=== PATIENT | male | born 1980 | race African-American/Black ===

== ENCOUNTER 2016-09-11 17:48 | Inpatient (IN) | payer BC ==
--- NOTE | ~2016-09-11 | CN ---
Consultation Report [facility] [address] [place]. [address] NAME: MIKE FRANZ : 82 STATUS : ADM Yessenia PAT#: [id number] AGE: 36 ADM/REG DATE : 09/11/16 MR#: [id number] REPORT SERV DATE: 09/13/16 DICTATED BY: HAMIDA MI DATE: 09/12/16 REPORT STATUS : Draft TRANSCRIBED BY: OLIVIA DATE: 09/12/16 NEUROLOGICAL CONSULTATION. DATE OF CONSULTATION: 09/12/2016 HISTORY OF PRESENT ILLNESS: This is a 36-year-old, male, who was admitted through the emergency room with right-sided weakness and numbness. The patient had a fluctuating course with numbness involving his leg and arm that recurred in the last two days prior to admission. The patient apparently woke up with symptoms of weakness on the day of admission. I was called in late afternoon to discuss the possible recommendations for this 36-year old, who presented with right-sided weakness and numbness. The patient was outside of the window for tPA and outside of the window for intervention. The history was obtained from the patient and his mother who is present at the bedside. It appears that the patient's symptom fluctuated, and the patient apparently woke up in the morning okay, however, noticed to have right leg weakness when he went to use the restroom which was shortly after awakening. The patient does not have any prior history of strokes. The CT scan of the head on admission to the emergency room showed no acute intracranial pathology. A small 4 mm old lacunar infarct was seen in the right basal ganglia and caudate nucleus. The MRI of the brain was recommended. The patient's MRI of the brain showed an acute stroke in the left periventricular region extending from basal ganglia. In addition, areas of ischemic infarcts were seen in both hemispheres suggestive of previous microvascular events. PAST MEDICAL HISTORY: Significant history of malignant hypertension. The patient has been on multiple anti-hypertensive medications prior to admission. The patient was evaluated, referred to Dr. Evans in [facility] who was apparently going to perform adrenalectomy for removal of "tumor" which appears to be possibly a pheochromocytoma. The patient's family was not aware of the details. SOCIAL HISTORY: The patient works in [employer]. There is no history of smoking or alcohol use. He lives with his parents. FAMILY HISTORY: Both parents have history of hypertension and obstructive sleep apnea. The patient's cousin on father's side at age 48 had an acute stroke. The patient's grandmother on maternal side had a stroke and renal disease prior to her . No history of renal disease present in the family. ALLERGIES: NO KNOWN ALLERGIES. SOCIAL HISTORY: As mentioned above. REVIEW OF SYSTEMS: The patient denied having knowledge of previous strokes in the past. The patient's blood pressure has been difficult to control. The patient's primary physician referred the patient to Dr. Evans for ? removal of adrenal gland with a " tumor." Consultation Report [place] [id number] [facility] [place]. [address] NAME: MIKE FRANZ : 82 STATUS : ADM Yessenia PAT#: [id number] AGE: 36 ADM/REG DATE : 09/11/16 MR#: [id number] REPORT SERV DATE: 09/13/16 DICTATED BY: HAMIDA MI DATE: 09/12/16 REPORT STATUS : Draft TRANSCRIBED BY: OLIVIA DATE: 09/12/16 There is no history of headaches or migraine headaches in the patient or his family. No history of cerebral hemorrhage was present in the patient's family. The rest of review of systems was negative except for history of hypertension poorly controlled. There is no history of chest pain, shortness of breath, irregular heart beat. The patient, however, stated that he finds himself snoring at night and waking up having difficulty falling back to sleep. The patient denied any recent changes of weight. Denied weakness or numbness of his face or extremities prior to his stroke. Denied difficulty with his speech or coordination. Denied loss of consciousness. No history of history of seizures. PHYSICAL EXAMINATION: VITAL SIGNS: Blood pressure oscillating between 146 and 185 systolic, 82 and 100 diastolic. Pulse ranges between 72 and 64. Respirations 16. Temperature 98.6. Height 6 feet and 2 inches. Weight 211 pounds/ 95.87 kilos, and BMI 27.1. HEAD AND NECK: Examination showed head to be normocephalic. There was no evidence of trauma. Auscultation of the neck showed no evidence of bruits. EYE EXAM: Sclerae were not icteric. Conjunctivae were pink. ENT EXAM: Showed small airway Mallampati class 3. Tongue was midline. No enlargement of the tongue noted. No fibrillations were observed. NECK: Neck was supple. There is no Kernig or Brudzinski. Cervical range of motion was not impaired. CHEST: Symmetrical. LUNGS: Clear. HEART: Auscultation of heart regular S1, S2. No S3, S4, gallops were noted. ABDOMEN: Abdomen was soft, nontender. No organomegaly. EXTREMITIES: Show no clubbing or cyanosis. There was no peripheral edema. Peripheral pulses were intact distally in both arms. SKIN: Clear. NEUROLOGICAL EXAMINATION: MENTAL STATUS EXAM: The patient is alert, oriented to self, time, and place. His speech was fluent. There was no evidence of aphasia although patient as per his mother was speaking slower than usual. The patient did not have any signs of true aphasia. No neologisms, difficulty finding words, difficulty with fluency was detected. Distant and recent memory appeared intact. Cranial nerve examination 2 through 12: Visual malhotra on confrontation were intact except for questionable left upper quadrant deficit which is probably secondary to difficulty in testing of this patient. The rest of cranial nerve examination showed very mild right facial weakness. No sensory deficits were noted. Examination of face; lower cranial nerves were intact. Tongue was midline. No atrophy or fibrillation noted. Palate elevated symmetrically. Sternocleidomastoid and trapezius muscles showed asymmetry of strength in shoulder shrug which was decreased on the right. Motor Exam: Muscle bulk and tone were normal on the left. Bulk was normal on the right. Tone was decreased on the right. Strength testing showed a strength of 5/5 on the left and Consultation Report [address] [place]. [address] NAME: MIKE FRANZ : 82 STATUS : ADM Yessenia PAT#: [id number] AGE: 36 ADM/REG DATE : 09/11/16 MR#: [id number] REPORT SERV DATE: 09/13/16 DICTATED BY: HAMIDA MI DATE: 09/12/16 REPORT STATUS : Draft TRANSCRIBED BY: MODTamir DATE: 09/12/16 3+/5 on the right upper extremity and 3/5 in right lower extremity. Sensory Exam: Showed decreased sensation to temperature on the right. However, vibration appeared to be symmetrical. Cerebellar exam on uisefy-kb-mvwt and fdny-ws-lhgk was intact on the left and difficult to test secondary to weakness. Gait could not be tested. The patient was not able to support his weight on the right. LABORATORY STUDIES: Sedimentation rate 11, glycosylated hemoglobin 5.6, urine drug screen negative. Comprehensive metabolic; sodium 141, potassium 4.3, chloride 105, carbon dioxide 29, BUN 25, creatinine 2.38. Glomerular filtration rate 39, glucose 102, calcium 9.6, total protein 8.6, albumin 4.1, globulin 4.6, troponins 0.03. AST 19, ALT 20. Lipid panel; cholesterol 125, HDL cholesterol 48, LDL cholesterol 65, triglyceride 64, CPK 471, CPK-MB fraction 1.7, TSH 0.958, free T4 1.16. MRI of the brain as mentioned above showed area of acute infarction in the left periventricular region extending to the basal ganglia. Ischemic changes were seen in both hemispheres as mentioned by the radiologist, would also include concern for underlying vasculitis or CADASIL. This was interpreted by Dr. Ben Leslie, Radiology. The patient's MRA of the neck showed early atherosclerotic changes in the posterior wall of the internal carotid bilaterally, however, no significant stenosis. An MRA of the head was normal. IMPRESSION: A stuttering course with recurrent transient ischemic attack, prior to an acute stroke which apparently was a combination of the process that continued for two days. The patient was apparently outside of the window for tPA or interventional evaluation. MRI did not show any lesions amenable to interventional treatment. History of malignant hypertension, possible history of pheochromocytoma. The patient was apparently scheduled for surgery to remove one of his adrenal glands as per patient's mother. Medications the patient has been on; Catapres, Procardia, Cardura, Lopressor and Lasix prior to admission and Catapres 0.1 mg suggest presence of severe hypertension poorly controlled. Recommend for the patient blood pressure to be contained within 150 and 185 systolic range to follow with rule of permissive hypertension during an acute stroke. This should extend for 72 hours after the apparent stroke. Avoid using IV hydralazine to cause precipitous drops of blood pressure. Cardene drip would be recommended if the patient's blood pressure exceeds the given parameters, and the patient should be transferred to the ICU for close monitoring. The patient's laboratory studies suggest presence of renal insufficiency, most likely secondary to hypertension. Recommend to follow guidelines for workup in a young patient that should include hypercoagulable state. Protein C, protein S, antithrombin III, Leiden factor 5, anticardiolipin antibodies titers, homocystine, vitamin B12, and folate levels should be obtained. Cardiac consultation for cardiac workup is highly recommended. The patient should have echocardiogram with a bubble study and a transesophageal echo (NAVA). A genetic testing should be considered if the diagnosis of CADASIL is entertained. This disorder is described more frequently in the young patients Consultation Report [facility] [address] [place]. [address] NAME: MIKE FRANZ : 82 STATUS : ADM Yessenia PAT#: [id number] AGE: 36 ADM/REG DATE : 09/11/16 MR#: [id number] REPORT SERV DATE: 09/13/16 DICTATED BY: HAMIDA MI DATE: 09/12/16 REPORT STATUS : Draft TRANSCRIBED BY: OLIVIA DATE: 09/12/16 with subcortical infarcts causing leukoencephalopathy, was most commonly associated with migraine headaches and follows the autosomal dominant pattern of inheritance. 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 Obtain records from the patient's primary physician and from Dr. Evans. The telephone number is included in the patient's chart. Follow stroke orders, PT, OT speech therapy, rehab transfer for aggressive continued inpatient rehabilitation. DVT prophylaxis, however, avoid anticoagulation. If the patient truly has CADASIL, these patients may be prone to micro-hemorrhages. The cerebral vasculitis should also be considered although no evidence of Moyamoya disease is present. The vasculitis changes can be missed on the MRA. I would recommend a followup with stroke neurologist on an outpatient basis once the patient is released from rehabilitation. The patient should also be referred for an outpatient polysomnography study to rule out obstructive sleep apnea and if present to receive treatment for it. Thank you for allowing me to participate in this patient's care. FLORIAN/OLIVIA Hamida Mi MD / [id number] CC: Armando Shahid M.D. [facility]
--- NOTE | ~2016-09-11 | DS ---
Discharge Summary [facility] [address] [place]. [address] NAME: MIKE FRANZ : 82 STATUS : DIS IN PAT#: [id number] AGE: 36 ADM/REG DATE : 09/11/16 MR#: [id number] REPORT SERV DATE: 09/16/16 DICTATED BY: NATALIE LOPEZ DATE: 09/15/16 REPORT STATUS : Draft TRANSCRIBED BY: OLIVIA DATE: 09/15/16 ADMISSION DATE: 09/11/2016 DISCHARGE DATE: 09/15/2016 CONSULTATIONS: 1. Neurology, Dr. Hamida Mi. 2. General Surgery, Dr. Evans. DISCHARGE DIAGNOSES: 1. Acute left paraventricular infarction extending into the basal ganglia region. 2. Malignant hypertension. 3. Pheochromocytoma. 4. Chronic kidney disease stage 3 to 4. 5. Hypertensive heart disease. 6. Hyperlipidemia. DISCHARGE CONDITION: Stable. HISTORY OF PRESENT ILLNESS: For detailed HPI, make reference to Dr. Art Davalos's dictation on 09/11/2016. In brief, this is a 36-year-old gentleman with medical history of malignant hypertension, chronic kidney disease stage 3 to stage 4, left ventricular hypertrophy, who presented to the emergency department with complaints of stuttering, right- sided numbness, tingling, and weakness of two days duration. On arrival to the ER, blood pressure was 145/67, pulse was 76, respiratory rate was 20, saturating 95% on room air. Physical exam was noted for right upper extremity and right lower extremity strength of 3/5. Left upper extremity and left lower extremity 5/5. A CT of the brain was done in the emergency room that was negative for an acute stroke, but noted was a small old right basal ganglia lacunar infarct. Neurology was consulted stat. An MRI/MRA of the brain was done that confirmed the presence of acute prior ventricular infection extending into the basal ganglia. The patient was outside the tPA window. The patient was admitted to the Hospitalist Service. HOSPITAL COURSE: 1. Acute left paraventricular infection extending into the basal ganglia, confirmed on MRI. The patient had further workup for possible definitive etiology of acute CVA. He underwent an echocardiogram that showed a normal left ventricular systolic function with estimated ejection fraction of 55%. No significant valvular regurgitation or stenosis was noted. The patient was placed on cardiac tele. No evidence of significant arrhythmias noted. The patient also underwent a transesophageal echo that showed no evidence of left atrial appendage thrombus. No evidence of atrial septal defect or patent foraminal ovale noted. It was noted on the patient's MRI that the patient's MRI imaging was also concerning for possible CADASIL. 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 The patient was advised to continue to have this further testing done as an outpatient with primary care physician. Per Physical Therapy evaluation, the patient was recommended to have acute rehabilitation at [facility]. The patient was accepted at Discharge Summary [address] [address] NAME: MIKE FRANZ : 82 STATUS : DIS IN PAT#: [id number] AGE: 36 ADM/REG DATE : 09/11/16 MR#: [id number] REPORT SERV DATE: 09/16/16 DICTATED BY: NATALIE LOPEZ DATE: 09/15/16 REPORT STATUS : Draft TRANSCRIBED BY: OLIVIA DATE: 09/15/16 [facility] and was subsequently discharged for acute rehabilitation. 2. Pheochromocytoma. The patient continued to have persistently elevated pheochromocytoma. The patient was well known to Dr. Evans, where he was having a pre workup for possible adrenalectomy. Prior to presentation to the hospital, the patient was started on Cardura, which was titrated from 4 mg to 8 mg during the course of this admission for blood pressure control. The patient was unable to have an adrenalectomy during this admission due to concern for an acute CVA. There is also a concern that the patient's blood pressure might suddenly drop post adrenalectomy, which may worsen the patient's neurological function from the acute cerebrovascular accident standpoint. Hence, it was concluded that the patient should continue tight blood pressure control, undergo rehab, and follow up as an outpatient for possible adrenalectomy. 3. Chronic kidney disease stage 3 to 4. The patient's creatinine on presentation was 2.38. The patient's last known baseline ranges between 2 and 3. The patient's primary Nephrology was consulted during this admission. The patient did not undergo any hemodialysis during this admission. The patient's creatinine continued to improve. The patient's creatinine was 2.14 prior to discharge. The patient was advised to continue to follow up with primary Nephrology as an outpatient. DISCHARGE MEDICATIONS: 1. Cardura 80 mg p.o. daily. 2. Clonidine 0.2 mg one p.o. b.i.d. 3. Spironolactone 50 mg p.o. daily. 4. Nifedipine XL 90 mg p.o. daily. 5. Aspirin 81 mg p.o. daily. 6. Lipitor 80 mg p.o. daily. 7. Lasix 40 mg p.o. daily. 8. Hydralazine 100 mg p.o. q.8 hours. DISCHARGE DISPOSITION: [facility] for rehab. Greater than 35 minutes was used to prepare this patient's discharge, reconcile medication, and advise the patient on discharge plans and followup. DICTATED BY: MD PHILIPP Joseph/OLIVIA Natalie Lopez MD / [id number] CC: Natalie Lopez MD Discharge Summary [address] [address] NAME: MIKE FRANZ : 82 STATUS : DIS IN PAT#: [id number] AGE: 36 ADM/REG DATE : 09/11/16 MR#: [id number] REPORT SERV DATE: 09/16/16 DICTATED BY: NATALIE LOPEZ DATE: 09/15/16 REPORT STATUS : Draft TRANSCRIBED BY: MODL DATE: 09/15/16 GURU Saad TAVAREZ
--- NOTE | ~2016-09-11 | OP ---
Record Of Operation [facility] [address] [place]. [address] NAME: MIKE NAVARRO : 82 STATUS : ADM Yessenia PAT#: [id number] AGE: 36 ADM/REG DATE : 09/11/16 MR#: [id number] REPORT SERV DATE: 09/14/16 DICTATED BY: DATE: REPORT STATUS : Draft TRANSCRIBED BY: MODL DATE: 09/14/16 DATE OF PROCEDURE: 09/14/2016 CHIEF COMPLAINT/REASON FOR STUDY: Cerebrovascular accident. DESCRIPTION OF PROCEDURE: Written informed consent was obtained. Please see chart for documentation. With the assistance of my Anesthesia colleagues, Mr. Navarro was sedated for the procedure. The transesophageal probe was placed with one attempt without complications. FINDINGS: 1. The left ventricular systolic function is normal with a visually estimated ejection fraction greater than 55%. The left ventricle is moderately hypertrophied. There was no evidence of left ventricular thrombus present. 2. The right ventricle is normal in size and systolic function. 3. The left atrium was mildly dilated. There was no evidence of left atrial thrombus. 4. The right atrium was normal in size. The agitated saline contrast study was performed. With complete opacification of the right atrium, there was no extravasation of agitated saline into the left atrium, there was no evidence of left atrial septal defect or patent foramen ovale. 5. The left atrial appendage was interrogated at multiple levels and depths. There was no evidence of left atrial appendage thrombus. VALVES: 1. The mitral valve was structurally normal. There was no significant mitral valvular regurgitation or stenosis. 2. The aortic valve was trileaflet. There was mild aortic valvular regurgitation. There was no evidence of aortic valvular stenosis. 3. The pulmonary valve was well visualized. There was no evidence of pulmonary valve stenosis or regurgitation. 4. The tricuspid valve was normal. There was no evidence of tricuspid valve regurgitation or stenosis. 5. There was no evidence of pericardial effusion. 6. The thoracic aorta was interrogated, there was mild intimal thickening present. IMPRESSION: 1. Normal left ventricular systolic function with a visually estimated ejection fraction greater than 55%. 2. Moderate left ventricular hypertrophy. 3. Mild aortic insufficiency. 4. No evidence of left atrial or left atrial appendage thrombus. 5. No evidence of atrial septal defect or patent foramen ovale. [facility]/MODL Sharona Mckeon Record Of Operation [facility] [address] [place]. [address] NAME: MIKE NAVARRO : 82 STATUS : ADM Yessenia PAT#: [id number] AGE: 36 ADM/REG DATE : 09/11/16 MR#: [id number] REPORT SERV DATE: 09/14/16 DICTATED BY: DATE: REPORT STATUS : Draft TRANSCRIBED BY: MODL DATE: 09/14/16 Jose Kumar / [id number] CC: MD MURPHY JosephGURU Nash
--- NOTE | ~2016-09-11 | HP ---
History And Physical [facility] [address] [place]. [address] NAME: MIKE NAVARRO : [birth year] STATUS : ADM Yessenia PAT#: [id number] AGE: 36 ADM/REG DATE : 09/11/16 MR#: [id number] REPORT SERV DATE: 09/12/16 DICTATED BY: TAMI LUTZ DATE: 09/11/16 REPORT STATUS : Draft TRANSCRIBED BY: MODTamir DATE: 09/11/16 DATE OF ADMISSION: 09/11/2016 POINT OF ENTRY: [facility] Emergency Department. PRIMARY POURER OFF: Dr. Wilde. CHIEF COMPLAINT: Right-sided weakness and numbness and tingling. HISTORY OF PRESENT ILLNESS: Mr. Navarro is a 36-year-old gentleman with a history of malignant hypertension as well as chronic kidney stage 3 to stage 4 and left ventricular hypertrophy who presents to the emergency department today with a two-day history of stuttering symptoms of right-sided numbness, tingling, and weakness. The patient states that his symptoms first began about two days ago when he noticed right lower extremity numbness and tingling but denies any pradip weakness. Those symptoms resolved on their own after a few hours. Yesterday, while at work, he again noticed some right lower extremity numbness and tingling, continued his shift at [employer] and then went home. Upon today, he noted that his right lower extremity numbness and tingling also returned. However, at this time, he stated he was unable to move his right lower extremity secondarty to weakness and also started to notice some numbness and tingling of the right upper extremity and numbness and tingling of the right side of the face. His mother who is at bedside noted some "twisted face" concerning for possible stroke as well as that he was having difficulties ambulating to the dinner table for dinner tonight. He then required assistance to get into the car to present to the emergency department. The patient was recently started on Cardura by Dr. Evans as he was referred to Dr. Evans for possible adrenalectomy. This medication was recently dose increased by Dr. Evans' office a few days ago for continued titration of the patient's blood pressures. Initial evaluation in the emergency department notable for CT scan of the brain that was negative for any acute stroke but did show a small old right basal ganglia lacunar infarction. Neurology was consulted and recommended stat MRI, MRA to be performed in the ER which reportedly came back as acute cerebrovascular accident involving the left posterior caudate as well as external capsule. Labs otherwise unremarkable. Blood pressures have been fairly well controlled with systolic between 130s to 160s. The patient was subsequently admitted to the Hospitalist Service for further evaluation and management. Comprehensive review of systems otherwise negative unless listed in history of present illness. The patient states that blood pressures at home have been ranging between 130s to 170s systolic as well as 80s to 90s diastolic. PREVIOUS MEDICAL HISTORY: 1. Hypertension. 2. Hyperlipidemia. 3. Chronic kidney disase, stage 3 to stage 4. Unknown recent baseline creatinine. History And Physical [address] [address] NAME: MIKE NAVARRO : [birth year] STATUS : ADM Yessenia PAT#: [id number] AGE: 36 ADM/REG DATE : 09/11/16 MR#: [id number] REPORT SERV DATE: 09/12/16 DICTATED BY: TAMI LUTZ DATE: 09/11/16 REPORT STATUS : Draft TRANSCRIBED BY: OLIVIA DATE: 09/11/16 4. LVH. SURGICAL HISTORY: 1. Umbilical hernia repair. 2. Left shoulder cyst surgery as a child. ALLERGIES: NO KNOWN DRUG ALLERGIES. HOME MEDICATIONS: 1. Vitamin D of 2000 units daily. 2. Clonidine 0.1 mg b.i.d. 3. Cardura 4 mg daily. 4. Lasix 40 mg daily. 5. Hydralazine 100 mg q.6 hours. 6. Lopressor 100 mg b.i.d. 7. Multivitamin one tablet daily. 8. Nifedipine 90 mg daily. 9. Simvastatin 20 mg at bedtime. 10.Aldactone 25 mg daily. SOCIAL HISTORY: Denies any tobacco, alcohol, or illicits. FAMILY MEDICAL HISTORY: Mother and father both with hypertension. Diabetes also runs in the family. LABS AND IMAGING: White count is 7.2, hemoglobin is 14.7, hematocrit 42.6, and platelet count is 220. INR 1.0. Sodium is 141, potassium 4.3, chloride 105, carbon dioxide 29, BUN 25, creatinine 2.3, glucose is 102, calcium 9.6, protein 8.6, albumin 4.1, bilirubin 0.7, ALT is 20, AST 19, and alkaline phosphatase is 177. Troponin 0.03. EKG per my review shows normal sinus rhythm with evidence of LVH as well as some lateral T- wave inversions which are unchanged compared to prior. Chest x-ray per my review shows no acute cardiopulmonary abnormality. CT scan of the brain shows no acute intracranial pathology, does show a small 4 mm old right basal ganglia lacunar infarction. MRI per overnight virtual radiology review shows no acute cerebrovascular accident involving the posterior left caudate and external capsule area. MRA of the neck is negative. MRI of the brain is pending. PHYSICAL EXAMINATION: History And Physical [address] [address] NAME: MIKE NAVARRO : [birth year] STATUS : ADM Yessenia PAT#: [id number] AGE: 36 ADM/REG DATE : 09/11/16 MR#: [id number] REPORT SERV DATE: 09/12/16 DICTATED BY: TAMI LUTZ DATE: 09/11/16 REPORT STATUS : Draft TRANSCRIBED BY: OLIVIA DATE: 09/11/16 VITAL SIGNS: Temperature is 98.2 degrees Fahrenheit, pulse is 76, respirations 20, saturating 98% on room air. Blood pressure 145/67. On recheck, blood pressure is now 152/94, pulse in the 70s. GENERAL: The patient is awake, alert, in no acute distress. Resting comfortably in bed. He is a well-developed, well-nourished, male. Mother is at bedside. HEENT: Atraumatic and normocephalic. Moist mucous membranes. Pupils are equal, round, reactive to light and accommodation. Extraocular eye movements intact. No scleral icterus. NECK: No jugular venous distention or carotid bruits. No carotid bruits. CARDIAC: Regular rate and rhythm. No murmurs, rubs, or gallops. Normal S1, S2. LUNGS: Clear to auscultation bilaterally. No wheezes, rhonchi, or crackles. ABDOMEN: Soft, nontender, nondistended with good bowel sounds. No rebound, guarding, or rigidity. EXTREMITIES: Warm and well perfused. No cyanosis, clubbing, or edema. SKIN: Warm and dry. PSYCH: Affect appropriate. NEURO: Alert and oriented x3. Cranial nerves 2 through 12 grossly intact. Speech is normal. Gait is not assessed. The patient does have 3+ strength in the right upper extremity as well as a 3/5 strength in the right lower extremity. There was some impaired proprioception of the right upper extremity as well as some dysmetria question whether that is secondary to cerebellar issues versus weakness. I do not appreciate any facial droop at this time and mother corrobrates that. ASSESSMENT AND PLAN: Mr. Navarro is a 36-year-old gentleman who presents with a two-day history of intermittent episodes of right lower extremity numbness, tingling, then progressing to weakness as well as involving the right upper extremity in the right side of his face and found to have evidence of an acute left-sided cerebrovascular accident. PROBLEM LIST: 1. Acute to subacute left-sided cerebrovascular accident. 2. Hypertension. 3. Hyperlipidemia. 4. Chronic kidney stage 3 to stage IV. PLAN: 1. Acute cerebrovascular accident. We will admit the patient to the Hospitalist Service under the stroke pathway. Neurology has been contacted in the emergency department. We will place a formal consultation to see in the morning. We will continue patient's high-dose aspirin and place the patient on high-dose atorvastatin. We will check an echocardiogram in the morning. We will also allow for some permissive hypertension with goal systolics of 140s to 170s overnight. We will defer further blood pressure goals to Neurology in the morning. 2. Hypertension. Continue the patient's home medications with holding parameters. Again, defer to Neurology in the morning regarding specific blood pressure goals in the short term. 3. Hyperlipidemia. Holding the patient's simvastatin. Place him on high-dose atorvastatin. 4. Chronic kidney stage 3 to stage 4. The patient appears to have a creatinine better History And Physical [address] [address] NAME: MIKE NAVARRO : 82 STATUS : ADM Yessenia PAT#: [id number] AGE: 36 ADM/REG DATE : 09/11/16 MR#: [id number] REPORT SERV DATE: 09/12/16 DICTATED BY: TAMI LUTZ DATE: 09/11/16 REPORT STATUS : Draft TRANSCRIBED BY: OLIVIA DATE: 09/11/16 than last known values in [employer], although I am not sure what his recent baseline creatinine values are at this time. 5. DVT prophylaxis. Lovenox subcu. CODE STATUS: The patient wished to be full code. SULEMAN/OLIVIA Tami Lutz MD / [id number] CC: Jose Taylor M.D.
[2016-09-11 15:45] LABS: BASOPHILS 0.1 %; BASOPHILS ABSOLUTE 0.01 10/3/uL (0.0-0.16); EOSINOPHILS 2.5 %; EOSINOPHILS ABSOLUTE 0.18 10/3/uL (0.0-0.53); IMMATURE GRANULOCYTES 0.1 %; IMMATURE GRANULOCYTES ABSOLUTE 0.01 10/3/uL (0.0-0.11); LYMPHOCYTES 23.6 %; MEAN CORPUS HGB CONC 34.5 g/dL (32.0-36.0); MEAN PLATELET VOLUME 11.2 fL (9.2-13.0); MONOCYTES 8.6 %; MONOCYTES ABSOLUTE 0.62 10/3/uL (0.21-1.20); NEUTROPHILS 65.1 %; NEUTROPHILS ABSOLUTE 4.69 10/3/uL (2.02-8.40); PLATELET COUNT 222 10/3/uL (150-400); RED CELL COUNT 5.03 10/6/uL (4.7-6.1)
[2016-09-11 15:51] LABS: HEMATOCRIT 42.6 % (40.0-51.0); HEMOGLOBIN 14.7 g/dL (13.6-17.8); MEAN CORPUSCULAR HEMOGLOB 29.2 pg (26.0-34.0); MEAN CORPUSCULAR VOLUME 84.7 fL (80-100); WHITE BLOOD CELLS 7.2 10/3/uL (4.5-10.5)
[2016-09-11 16:00] LABS: MANUAL DIFF NO %
[2016-09-11 16:05] LABS: A/G RATIO 0.9 (0.7-1.9); ALBUMIN 4.1 G/DL (3.5-5.0); ALKALINE PHOSPHATASE 111 U/L (45-117); BUN (BLOOD UREA NITROGEN) 25 MG/DL (6-23); CALCIUM, SERUM 9.6 MG/DL (8.5-10.4); CHLORIDE, SERUM 105 MMOL/L (96-112); CO2 (CARBON DIOXIDE) 29 MMOL/L (24-34); CREATININE 2.38 MG/DL (0.70-1.30); GFR AFRICAN AMERICAN 39 ML/MIN (>=60); GFR NON AFRICAN AMERICAN 34 ML/MIN (>=60); GLOBULIN 4.5 G/DL (2.5-4.1); GLUCOSE, SERUM 102 MG/DL (60-99); POTASSIUM, SERUM 4.3 MMOL/L (3.5-5.3); SGOT(AST) 19 U/L (5-40); SGPT(ALT) 20 U/L (5-65); SODIUM, SERUM 141 MMOL/L (135-148); TOTAL BILIRUBIN 0.7 MG/DL (0-1.2); TOTAL PROTEIN 8.6 G/DL (6.0-8.5); TROPONIN I 0.03 NG/ML (<0.05)
[2016-09-11 16:09] LABS: PROTIME (NOT ORD) 13.5 SEC (12.0-14.5)
[~2016-09-11 17:48] MED LIST: ADALAT CC90 MG PO; AMLODIPINE BESYLATE PO; APRES25 PO; CARDU4 PO; CAT1 PO; HYDRALAZINE100 MG PO; L40 PO; LONITEN10 PO; LOP100 PO; MULTIVITAMI1 PO; NICODERM C21 MG/241 TOP; NORV10 PO; NORV5 PO; NXL9 PO; SPIRO25 PO; TRANDAT100 PO; VITAMIN D2000 UNIT PO; ZOCOR20 PO
[2016-09-12 08:29] LABS: CHOL/HDL RATIO(NOT ORDER) 2.6 (0-5); CHOLESTEROL 125 MG/DL (< 200); CPK 471 U/L (0-200); FREE T4 1.16 NG/DL (0.76-1.46); HDL CHOLESTEROL 48 MG/DL (> 39); LDL CHOLESTEROL 65 MG/DL (< 130); NON-HDL CHOLESTEROL 77 MG/DL (< 160); TRIGLYCERIDE 64 MG/DL (< 150); TROPONIN I <0.02 NG/ML (<0.05)
[2016-09-12 08:30] LABS: CK-MB 1.7 NG/ML; ULTRASENSITIVE TSH 0.958 MCIU/ML (0.358-3.740)
[2016-09-12 13:17] LABS: CPK 483 U/L (0-200); TROPONIN I <0.02 NG/ML (<0.05)
[2016-09-12 13:20] LABS: CK-MB 1.8 NG/ML
[2016-09-12 14:44] LABS: AMPHETAMINES (NOT ORD) NEG (NEG); BARBITURATES (NOT ORDERED NEG (NEG); BENZODIAZEPINES (NOT ORD) NEG (NEG); CANNABINOIDS (THC) NEG (NEG); COCAINE (NOT ORDERED) NEG (NEG); OPIATES NEG (NEG); PHENCYCLIDINE(PCP) NEG (NEG); TRICYCLICS NEG (NEG)
[2016-09-13 07:27] LABS: SED RATE 13 MM/HR (0-15)
[2016-09-13 07:48] LABS: ANTITHROMBIN 3 ACTIVITY 103 % (80-121); CHOL/HDL RATIO(NOT ORDER) 3.1 (0-5); FOLATE 34.5 NG/ML (>5.2); HOMOCYSTEINE 11.9 UMOL/L (4.3-11.4)
[2016-09-14 05:51] LABS: BASOPHILS 0.2 %; BASOPHILS ABSOLUTE 0.01 10/3/uL (0.0-0.16); EOSINOPHILS 6.6 %; EOSINOPHILS ABSOLUTE 0.32 10/3/uL (0.0-0.53); HEMATOCRIT 39.8 % (40.0-51.0); HEMOGLOBIN 13.7 g/dL (13.6-17.8); IMMATURE GRANULOCYTES 0.2 %; IMMATURE GRANULOCYTES ABSOLUTE 0.01 10/3/uL (0.0-0.11); LYMPHOCYTES 29.5 %; LYMPHOCYTES ABSOLUTE 1.43 10/3/uL (0.67-4.30); MEAN CORPUS HGB CONC 34.4 g/dL (32.0-36.0); MEAN CORPUSCULAR HEMOGLOB 28.8 pg (26.0-34.0); MEAN CORPUSCULAR VOLUME 83.6 fL (80-100); MEAN PLATELET VOLUME 11.1 fL (9.2-13.0); MONOCYTES 6.6 %; MONOCYTES ABSOLUTE 0.32 10/3/uL (0.21-1.20); NEUTROPHILS 56.9 %; NEUTROPHILS ABSOLUTE 2.75 10/3/uL (2.02-8.40); PLATELET COUNT 228 10/3/uL (150-400); RBC DISTRIBUTION WIDTH 13.5 % (12.0-16.0); RED CELL COUNT 4.76 10/6/uL (4.7-6.1); WHITE BLOOD CELLS 4.8 10/3/uL (4.5-10.5)
[2016-09-14 05:52] LABS: MANUAL DIFF NO %
[2016-09-14 06:05] LABS: ALBUMIN 3.6 G/DL (3.5-5.0); BUN (BLOOD UREA NITROGEN) 24 MG/DL (6-23); CALCIUM, SERUM 9.7 MG/DL (8.5-10.4); CHLORIDE, SERUM 106 MMOL/L (96-112); CO2 (CARBON DIOXIDE) 25 MMOL/L (24-34); CREATININE 2.08 MG/DL (0.70-1.30); GFR AFRICAN AMERICAN 46 ML/MIN (>=60); GFR NON AFRICAN AMERICAN 40 ML/MIN (>=60); GLUCOSE, SERUM 94 MG/DL (60-99); PHOSPHORUS, SERUM 3.3 MG/DL (2.5-4.5); POTASSIUM, SERUM 3.8 MMOL/L (3.5-5.3); SODIUM, SERUM 140 MMOL/L (135-148)
[2016-09-14 06:51] LABS: PROCALCITONIN <0.05 ng/mL (<0.5)
[2016-09-14 16:03] LABS: ANTI-CARDIOLIPIN ANTIBODY IGA 6 CU (0-20)
[2016-09-15 06:19] LABS: BASOPHILS 0.2 %; BASOPHILS ABSOLUTE 0.01 10/3/uL (0.0-0.16); EOSINOPHILS 6.6 %; EOSINOPHILS ABSOLUTE 0.36 10/3/uL (0.0-0.53); HEMATOCRIT 39.2 % (40.0-51.0); HEMOGLOBIN 13.4 g/dL (13.6-17.8); IMMATURE GRANULOCYTES 0.2 %; IMMATURE GRANULOCYTES ABSOLUTE 0.01 10/3/uL (0.0-0.11); LYMPHOCYTES ABSOLUTE 1.57 10/3/uL (0.67-4.30); MEAN CORPUS HGB CONC 34.2 g/dL (32.0-36.0); MEAN CORPUSCULAR HEMOGLOB 28.6 pg (26.0-34.0); MEAN CORPUSCULAR VOLUME 83.8 fL (80-100); MEAN PLATELET VOLUME 11.1 fL (9.2-13.0); MONOCYTES 5.5 %; NEUTROPHILS 58.5 %; NEUTROPHILS ABSOLUTE 3.17 10/3/uL (2.02-8.40); PLATELET COUNT 236 10/3/uL (150-400); RBC DISTRIBUTION WIDTH 13.5 % (12.0-16.0); RED CELL COUNT 4.68 10/6/uL (4.7-6.1); WHITE BLOOD CELLS 5.4 10/3/uL (4.5-10.5)
[2016-09-15 06:22] LABS: MANUAL DIFF NO %
[2016-09-15 06:32] LABS: ALBUMIN 3.7 G/DL (3.5-5.0); BUN (BLOOD UREA NITROGEN) 24 MG/DL (6-23); CALCIUM, SERUM 9.4 MG/DL (8.5-10.4); CHLORIDE, SERUM 107 MMOL/L (96-112); CO2 (CARBON DIOXIDE) 26 MMOL/L (24-34); CREATININE 2.14 MG/DL (0.70-1.30); GFR AFRICAN AMERICAN 45 ML/MIN (>=60); GFR NON AFRICAN AMERICAN 39 ML/MIN (>=60); GLUCOSE, SERUM 90 MG/DL (60-99); POTASSIUM, SERUM 3.9 MMOL/L (3.5-5.3); SODIUM, SERUM 139 MMOL/L (135-148)
[2016-09-15 13:27] LABS: PROTEIN C ACTIVITY 164 % (70-145); PROTEIN S ACTIVITY 92 % (69-161)
[2016-09-15 14:34] LABS: DRVVT 47.2 sec (31.8-45.7); DRVVT CONFIRM RATIO CHG ND; DRVVT MIX RATIO CHG YES
[2016-09-16 13:55] LABS: PROTEIN C ACTIVITY 146 % (70-145); PROTEIN S ACTIVITY 106 % (69-161)
[2016-09-20 16:16] LABS: PROTHROMBIN FRAGMENT 1+2 MONOC 116 pmol/L (87-325)
== END 2016-09-15 17:59 | DRG 65 ==
LOC: ER 17:48 → 1SO 22:09
PROVIDERS: Emergency Medicine; Hospitalist; Internal Medicine; Internal Medicine Nephrology; Nurse Practitioner
PROC: B246ZZ4 Ultrasonography of Right and Left Heart, Transesophageal (ICD-10-PCS; principal; 2016-09-14)
DX: I63.9 Cerebral infarction, unspecified (principal); G81.91 Hemiplegia, unspecified affecting right dominant side; I13.10 Hypertensive heart and chronic kidney disease without heart failure, with stage 1 through stage 4 chronic kidney disease, or unspecified chronic kidney disease; N18.3 Chronic kidney disease, stage 3 (moderate); D35.00 Benign neoplasm of unspecified adrenal gland; R29.810 Facial weakness; E78.5 Hyperlipidemia, unspecified; F32.9 Major depressive disorder, single episode, unspecified; F17.210 Nicotine dependence, cigarettes, uncomplicated; Z79.899 Other long term (current) drug therapy
CPT/HCPCS: 70450; 70544; 70547; 70551-52; 71010; 80053; 80061; 80069; 80305; 81241; 82550; 82553; 82607; 82746; 83036; 83090; 83520; 83735; 84145; 84439; 84443; 84484; 85025; 85300; 85303; 85306; 85610; 85613; 85652; 85670; 85730; 86146; 86146-59; 86147; 92523-GN; 93005; 93306; 93312; 93320; 93325; 97110-GO; 97110-GP; 97116-GP; 97161-GP; 97167-GO; 97530-GO; 97530-GP; 99285; A9270-GY; J0360

== ENCOUNTER 2016-09-16 23:55 | Emergency (ER) | payer BC ==
[2016-09-17 01:48] LABS: BASOPHILS 0.3 %; BASOPHILS ABSOLUTE 0.02 10/3/uL (0.0-0.16); EOSINOPHILS 3.4 %; HEMATOCRIT 37.2 % (40.0-51.0); HEMOGLOBIN 12.9 g/dL (13.6-17.8); LYMPHOCYTES 31.1 %; LYMPHOCYTES ABSOLUTE 1.83 10/3/uL (0.67-4.30); MEAN CORPUS HGB CONC 34.7 g/dL (32.0-36.0); MEAN CORPUSCULAR HEMOGLOB 28.9 pg (26.0-34.0); MEAN CORPUSCULAR VOLUME 83.4 fL (80-100); MEAN PLATELET VOLUME 11.1 fL (9.2-13.0); MONOCYTES 5.6 %; MONOCYTES ABSOLUTE 0.33 10/3/uL (0.21-1.20); NEUTROPHILS 59.6 %; NEUTROPHILS ABSOLUTE 3.51 10/3/uL (2.02-8.40); PLATELET COUNT 216 10/3/uL (150-400); RBC DISTRIBUTION WIDTH 13.6 % (12.0-16.0); RED CELL COUNT 4.46 10/6/uL (4.7-6.1); WHITE BLOOD CELLS 5.9 10/3/uL (4.5-10.5)
[2016-09-17 01:50] LABS: MANUAL DIFF NO %
[2016-09-17 01:58] LABS: INTERNATIONAL NORMAL RATI 1.1 UNITS (-); PARTIAL THROMBO TIME 29.9 SEC (22.5-37.2)
[2016-09-17 02:05] LABS: BUN (BLOOD UREA NITROGEN) 23 MG/DL (6-23); CALCIUM, SERUM 9.1 MG/DL (8.5-10.4); CHEST PAIN PROFILE TAT 0 Hrs 21 Mins; CHLORIDE, SERUM 108 MMOL/L (96-112); CO2 (CARBON DIOXIDE) 27 MMOL/L (24-34); CREATININE 2.09 MG/DL (0.70-1.30); GFR AFRICAN AMERICAN 46 ML/MIN (>=60); GFR NON AFRICAN AMERICAN 40 ML/MIN (>=60); GLUCOSE, SERUM 106 MG/DL (60-99); POTASSIUM, SERUM 3.5 MMOL/L (3.5-5.3); SODIUM, SERUM 142 MMOL/L (135-148); TROPONIN I <0.02 NG/ML (<0.05)
== END 2016-09-17 03:14 | disposition home or self-care (01) ==
LOC: ER 23:55
PROVIDERS: Emergency Medicine
DX: I12.9 Hypertensive chronic kidney disease with stage 1 through stage 4 chronic kidney disease, or unspecified chronic kidney disease (principal); N18.9 Chronic kidney disease, unspecified; D35.00 Benign neoplasm of unspecified adrenal gland; I63.9 Cerebral infarction, unspecified; F32.9 Major depressive disorder, single episode, unspecified; Z86.718 Personal history of other venous thrombosis and embolism; Z79.899 Other long term (current) drug therapy
CPT/HCPCS: 80048; 83735; 84484; 85025; 85610; 85730; 99284; A9270-GY